=== PATIENT | male | born 1955 | race Two or more races ===

== ENCOUNTER 2019-05-31 17:35 | Emergency (ER) | payer MEDICARE ==
[~2019-05-31] VITALS: Ht 193 cm; Wt 95.0 kg
[2019-05-31] MEDS ORDERED: BACITRACIN ZINC OINT UDPKT TOP ONE (21:15)
[2019-05-31] MEDS ORDERED: LIDOCAINE HCL/PF 1% 10 MG/ML 5ML VIAL IJ ONE (21:15)
[2019-05-31] MEDS ORDERED: TETANUS, DIPHTHERIA, PERTUSSIS VAC/PF 0.5ML (>7YR OLD) IM ONE (21:15)
[2019-05-31 22:28] VITALS: BP 158/89
== END 2019-05-31 22:39 | disposition home or self-care (01) ==
LOC: ER 17:35
DX: S61.217A Laceration without foreign body of left little finger without damage to nail, initial encounter (principal); R03.0 Elevated blood-pressure reading, without diagnosis of hypertension; W26.0XXA Contact with knife, initial encounter; Y93.G3 Activity, cooking and baking; Y92.010 Kitchen of single-family (private) house as the place of occurrence of the external cause; Z23 Encounter for immunization
CPT/HCPCS: 12001; 90471; 90715; 99283; J3490

== ENCOUNTER 2019-06-04 10:41 | Emergency (ER) | payer MEDICARE ==
[~2019-06-04] VITALS: Ht 193 cm; Wt 210.0 kg
[2019-06-04 11:45] VITALS: BP 156/81
[2019-06-04] MEDS ORDERED: BACITRACIN ZINC OINT UDPKT TOP ONE (12:45)
== END 2019-06-04 12:45 | disposition home or self-care (01) ==
LOC: ER 10:41
DX: S61.217D Laceration without foreign body of left little finger without damage to nail, subsequent encounter (principal); W26.8XXD Contact with other sharp object(s), not elsewhere classified, subsequent encounter; Z90.49 Acquired absence of other specified parts of digestive tract
CPT/HCPCS: 99282

== ENCOUNTER 2019-06-09 09:19 | Emergency (ER) | payer MEDICARE ==
[~2019-06-09] VITALS: Ht 193 cm; Wt 95.0 kg
[2019-06-09 09:29] VITALS: BP 138/100
[2019-06-09] MEDS ORDERED: BACITRACIN ZINC OINT UDPKT TOP ONE (10:30)
== END 2019-06-09 10:58 | disposition home or self-care (01) ==
LOC: ER 09:19
DX: Z48.00 Encounter for change or removal of nonsurgical wound dressing (principal)
CPT/HCPCS: 99283

== ENCOUNTER 2019-06-13 09:14 | Emergency (ER) | payer MEDICARE ==
[~2019-06-13] VITALS: Ht 193 cm; Wt 93.0 kg
[2019-06-13 09:42] VITALS: BP 144/86
== END 2019-06-13 10:47 | disposition home or self-care (01) ==
LOC: ER 09:51
DX: S60.41 Abrasion of fingers (principal); X58.XXXD Exposure to other specified factors, subsequent encounter; Z48.02 Encounter for removal of sutures
CPT/HCPCS: 99281